=== PATIENT | female | born 1950 | race Caucasian/White ===

== ENCOUNTER 2021-06-08 18:18 | Inpatient (IN) | payer OTHER ==
[~2021-06-08] VITALS: Ht 157.5 cm; Wt 46.0 kg
[2021-06-08 23:01] LABS: Basophils # (auto) 0 10 ^3/uL (0-0.2); Basophils % (auto) 0.3 % (0.0-2.0); Eosinophils # (auto) 0.1 10 ^3/uL (0-0.8); Hematocrit 37.2 % (36.0-46.0); Lymphocytes # (auto) 1.2 10 ^3/uL (0.4-5.4); Mean Corpuscular Hemoglobin 30.9 pg (28.0-32.0); Mean Corpuscular Hgb Conc. 34.9 g/dL (32.0-36.0); Mean Corpuscular Volume 88.6 fL (80.0-100.0); Monocytes # (auto) 0.5 10 ^3/uL (0-1.3); Monocytes % (auto) 14.3 % (0.0-12.0); Neutrophils # (auto) 1.7 10 ^3/uL (1.6-8.6); Neutrophils % (auto) 48.4 % (37.0-80.0); Nucleated Red Blood Cells % 0.1 %; White Blood Cell 3.6 10^3/uL (4.4-10.8)
[2021-06-08 23:18] LABS: Calcium 8.2 mg/dL (8.5-10.1); Potassium 3.2 mmol/L (3.5-5.1)
[2021-06-08 23:40] LABS: BUN/Creatinine Ratio 19.6; Bilirubin, Total 0.5 mg/dL (0.2-1.0); Total Protein 6.1 g/dL (6.4-8.2)
[2021-06-09] MEDS ORDERED: AZITHROMYCIN 500MG/ 250ML 250 ML IV ONE (00:45)
[2021-06-09] MEDS ORDERED: cefTRIAXone SOD 1,000 MG VL IV ONE (00:45)
[2021-06-09] MEDS ORDERED: DexAMETHasone SOD PHOS 10MG/1ML VIAL INJ IV ONE (02:15)
[2021-06-09] MEDS ORDERED: ONDANSETRON HCL 4 MG/2 ML VIAL IV PRN (03:30)
[2021-06-09] MEDS ORDERED: POTASSIUM CHL 20 Meq TABLET PO ONE (03:30)
[2021-06-09] MEDS ORDERED: MORPHINE SULFATE INJECTION 2 MG/ML SYRG IV PRN (03:30)
[2021-06-09] MEDS ORDERED: ACETAMINOPHEN 500 MG TAB PO PRN (03:30)
[2021-06-09] MEDS ORDERED: NITROGLYCERIN 0.4 MG SL TAB SL PRN (03:30)
[2021-06-09] MEDS ORDERED: REMDESIVIR PER PHARMACY 0 ML IV SCH (03:30)
[2021-06-09 05:23] LABS: Magnesium 2.2 mg/dL (1.6-2.6)
[2021-06-09 05:31] LABS: CRP High Sensitivity 3.16 mg/dL (< 0.3)
[2021-06-09] MEDS: ASCORBIC ACID 1,000 MG TAB PO SCH (09:51)
[2021-06-09] MEDS: ZINC SULFATE 220mg CAP or TAB PO SCH (09:51)
[2021-06-09] MEDS: CHOLECALCIFEROL (VITD3) 2,000 UNIT CAP/TAB PO SCH (09:52)
[2021-06-09] MEDS: ENOXAPARIN SOD 40 MG/0.4 ML SYRINGE SC SCH ×2 (09:52→22:30)
[2021-06-09] MEDS: BUDESONIDE (INHALATION) 180 MCG IH IN SCH ×2 (10:00→18:41)
[2021-06-09] MEDS: IVERMECTIN 3 MG TAB PO SCH (12:06)
[2021-06-09] MEDS ORDERED: ACETAMINOPHEN 325 MG TAB PO ONE ×2 (13:05→13:15)
[2021-06-09] MEDS ORDERED: REMDESIVIR 200 MG in NS 210ml LOADING DOSE ADULT IV ONE (15:00)
[2021-06-09] MEDS: guaiFENesin-DM 100/10mg/5ml SYR PO PRN ×2 (16:05→21:37)
[2021-06-09] MEDS: ALBUTEROL SULF HFA 90MCG INH 200DOSE IN PRN (18:41)
[2021-06-09] MEDS: AZITHROMYCIN 500MG/ 250ML 250 ML IV SCH (22:00)
[2021-06-09] MEDS: cefTRIAXone 1GM/50ML D5W 50 ML IV SCH (22:30)
[2021-06-09] MEDS: DexAMETHasone SOD PHOS 10MG/1ML VIAL INJ IV SCH (22:30)
[2021-06-10] MEDS ORDERED: ATOR10TA52 PO (03:21)
[2021-06-10] MEDS ORDERED: FAMO-12 PO (03:21)
[2021-06-10] MEDS ORDERED: IPRIH IN (03:21)
[2021-06-10] MEDS ORDERED: ALBUAER3 IN (03:21)
[2021-06-10 07:40] LABS: Basophils # (auto) 0 10 ^3/uL (0-0.2); Basophils % (auto) 0.1 % (0.0-2.0); Eosinophils # (auto) 0 10 ^3/uL (0-0.8); Hematocrit 36.5 % (36.0-46.0); Hemoglobin 12.5 g/dL (12.2-16.2); Lymphocytes # (auto) 0.4 10 ^3/uL (0.4-5.4); Lymphocytes % (auto) 16.7 % (10.0-50.0); Mean Corpuscular Hemoglobin 30.5 pg (28.0-32.0); Mean Corpuscular Hgb Conc. 34.2 g/dL (32.0-36.0); Mean Corpuscular Volume 89.2 fL (80.0-100.0); Monocytes # (auto) 0.1 10 ^3/uL (0-1.3); Monocytes % (auto) 3.7 % (0.0-12.0); Neutrophils # (auto) 2.1 10 ^3/uL (1.6-8.6); Neutrophils % (auto) 79.5 % (37.0-80.0); Nucleated Red Blood Cells % 0.1 %; White Blood Cell 2.7 10^3/uL (4.4-10.8)
[2021-06-10 08:27] LABS: Albumin 2.9 g/dL (3.4-5.0); Calcium 8.1 mg/dL (8.5-10.1)
[2021-06-10 08:31] LABS: BUN/Creatinine Ratio 27.3; Bilirubin, Total 0.3 mg/dL (0.2-1.0)
[2021-06-10 09:00] VITALS: BP 101/59
[2021-06-10] MEDS: CHOLECALCIFEROL (VITD3) 2,000 UNIT CAP/TAB PO SCH (09:05)
[2021-06-10] MEDS: ZINC SULFATE 220mg CAP or TAB PO SCH (09:05)
[2021-06-10] MEDS: ENOXAPARIN SOD 40 MG/0.4 ML SYRINGE SC SCH ×2 (09:06→22:29)
[2021-06-10] MEDS: ASCORBIC ACID 1,000 MG TAB PO SCH (09:06)
[2021-06-10] MEDS: IVERMECTIN 3 MG TAB PO SCH (09:06)
[2021-06-10 10:08] LABS: Urine Bacteria NONE SEEN /hpf (None Seen); Urine Blood Negative /uL (Negative); Urine Specific Gravity 1.006 (1.001-1.035); Urine WBC <1 /hpf (0 - 5)
[2021-06-10 13:00] VITALS: BP_SYST 127; BP_SYST 144; BP_SYST 153; BP_SYST 97; BP_DIAS 53; BP_DIAS 62; BP_DIAS 63; BP_DIAS 76
[2021-06-10] MEDS: ALBUTEROL SULF HFA 90MCG INH 200DOSE IN PRN ×2 (13:20→18:51)
[2021-06-10] MEDS: REMDESIVIR 100mg 100 MG in SODIUM CHL 0.9% 230 ML IV SCH (15:40)
[2021-06-10 17:00] VITALS: BP 101/61
[2021-06-10 20:00] VITALS: BP 100/63
[2021-06-10] MEDS: BUDESONIDE (INHALATION) 180 MCG IH IN SCH (21:10)
[2021-06-10 22:00] VITALS: BP 100/63
[2021-06-10] MEDS: DexAMETHasone SOD PHOS 10MG/1ML VIAL INJ IV SCH (22:28)
[2021-06-10] MEDS: cefTRIAXone 1GM/50ML D5W 50 ML IV SCH (22:29)
[2021-06-10] MEDS: AZITHROMYCIN 500MG/ 250ML 250 ML IV SCH (23:18)
[2021-06-11 05:00] VITALS: BP 133/65
[2021-06-11] MEDS: ALBUTEROL SULF HFA 90MCG INH 200DOSE IN PRN ×2 (07:38→21:47)
[2021-06-11] MEDS: BUDESONIDE (INHALATION) 180 MCG IH IN SCH ×2 (07:38→21:47)
[2021-06-11 08:18] LABS: Albumin 2.8 g/dL (3.4-5.0); Calcium 7.9 mg/dL (8.5-10.1); Potassium 4.6 mmol/L (3.5-5.1)
[2021-06-11 08:22] LABS: BUN/Creatinine Ratio 34.1; Bilirubin, Total 0.2 mg/dL (0.2-1.0); Total Protein 5.4 g/dL (6.4-8.2)
[2021-06-11 09:00] VITALS: BP 101/54
[2021-06-11] MEDS: ENOXAPARIN SOD 40 MG/0.4 ML SYRINGE SC SCH ×2 (10:00→22:05)
[2021-06-11] MEDS: ZINC SULFATE 220mg CAP or TAB PO SCH (10:19)
[2021-06-11] MEDS: IVERMECTIN 3 MG TAB PO SCH (10:19)
[2021-06-11] MEDS: ASCORBIC ACID 1,000 MG TAB PO SCH (10:20)
[2021-06-11] MEDS: CHOLECALCIFEROL (VITD3) 2,000 UNIT CAP/TAB PO SCH (10:20)
[2021-06-11 13:00] VITALS: BP 89/54
[2021-06-11] MEDS: REMDESIVIR 100mg 100 MG in SODIUM CHL 0.9% 230 ML IV SCH (15:00)
[2021-06-11 16:46] VITALS: BP 117/74
[2021-06-11] MEDS: cefTRIAXone 1GM/50ML D5W 50 ML IV SCH (21:15)
[2021-06-11 22:00] VITALS: BP_SYST 93; BP_SYST 95; BP_DIAS 55; BP_DIAS 58
[2021-06-11] MEDS: DexAMETHasone SOD PHOS 10MG/1ML VIAL INJ IV SCH (22:05)
[2021-06-11] MEDS: AZITHROMYCIN 500MG/ 250ML 250 ML IV SCH (22:05)
[2021-06-12 05:00] VITALS: BP 95/61
[2021-06-12] MEDS: BUDESONIDE (INHALATION) 180 MCG IH IN SCH ×2 (05:53→22:12)
[2021-06-12] MEDS: ALBUTEROL SULF HFA 90MCG INH 200DOSE IN PRN (05:53)
[2021-06-12 08:34] LABS: Potassium 4.5 mmol/L (3.5-5.1)
[2021-06-12 08:45] LABS: BUN/Creatinine Ratio 26.4; Bilirubin, Total 0.3 mg/dL (0.2-1.0); Total Protein 5.5 g/dL (6.4-8.2)
[2021-06-12 09:00] VITALS: BP 112/69
[2021-06-12] MEDS: IVERMECTIN 3 MG TAB PO SCH (09:04)
[2021-06-12] MEDS: ZINC SULFATE 220mg CAP or TAB PO SCH (09:04)
[2021-06-12] MEDS: ASCORBIC ACID 1,000 MG TAB PO SCH (09:05)
[2021-06-12] MEDS: CHOLECALCIFEROL (VITD3) 2,000 UNIT CAP/TAB PO SCH (09:05)
[2021-06-12] MEDS: ENOXAPARIN SOD 40 MG/0.4 ML SYRINGE SC SCH ×2 (09:05→21:16)
[2021-06-12 13:00] VITALS: BP 103/63
[2021-06-12] MEDS: REMDESIVIR 100mg 100 MG in SODIUM CHL 0.9% 230 ML IV SCH (13:37)
[2021-06-12 17:00] VITALS: BP 115/55
[2021-06-12] MEDS ORDERED: AMLO-489 PO (17:09)
[2021-06-12] MEDS ORDERED: METF-370 PO (17:09)
[2021-06-12] MEDS: cefTRIAXone 1GM/50ML D5W 50 ML IV SCH (21:16)
[2021-06-12] MEDS: DexAMETHasone SOD PHOS 10MG/1ML VIAL INJ IV SCH (21:16)
[2021-06-12 22:00] VITALS: BP 103/63
[2021-06-12] MEDS: AZITHROMYCIN 500MG/ 250ML 250 ML IV SCH (22:20)
[2021-06-13] MEDS: ALBUTEROL SULF HFA 90MCG INH 200DOSE IN PRN ×2 (00:42→08:03)
[2021-06-13 05:00] VITALS: BP 111/62
[2021-06-13] MEDS: BUDESONIDE (INHALATION) 180 MCG IH IN SCH (08:03)
[2021-06-13 08:11] LABS: Basophils # (auto) 0 10 ^3/uL (0-0.2); Eosinophils # (auto) 0 10 ^3/uL (0-0.8); Hematocrit 36.8 % (36.0-46.0); Hemoglobin 12.5 g/dL (12.2-16.2); Lymphocytes # (auto) 0.6 10 ^3/uL (0.4-5.4); Lymphocytes % (auto) 16.4 % (10.0-50.0); Mean Corpuscular Hemoglobin 30.4 pg (28.0-32.0); Mean Corpuscular Volume 89.5 fL (80.0-100.0); Monocytes # (auto) 0.2 10 ^3/uL (0-1.3); Monocytes % (auto) 5.5 % (0.0-12.0); Neutrophils # (auto) 2.6 10 ^3/uL (1.6-8.6); Neutrophils % (auto) 78.1 % (37.0-80.0); Nucleated Red Blood Cells % 0.2 %; Red Blood Cells 4.11 10^6/uL (4.0-5.20); Red Cell Distribution Width 13.2 % (11.8-14.3); White Blood Cell 3.4 10^3/uL (4.4-10.8)
[2021-06-13 08:26] LABS: Potassium 4.5 mmol/L (3.5-5.1)
[2021-06-13 08:34] LABS: BUN/Creatinine Ratio 31.3; Bilirubin, Total 0.4 mg/dL (0.2-1.0); CRP High Sensitivity 0.54 mg/dL (< 0.3); Calcium 8.3 mg/dL (8.5-10.1); Total Protein 5.4 g/dL (6.4-8.2)
[2021-06-13 08:39] VITALS: BP 143/73
[2021-06-13] MEDS: ZINC SULFATE 220mg CAP or TAB PO SCH (09:20)
[2021-06-13] MEDS: IVERMECTIN 3 MG TAB PO SCH (09:20)
[2021-06-13] MEDS: ASCORBIC ACID 1,000 MG TAB PO SCH (09:20)
[2021-06-13] MEDS: CHOLECALCIFEROL (VITD3) 2,000 UNIT CAP/TAB PO SCH (09:21)
[2021-06-13] MEDS: ENOXAPARIN SOD 40 MG/0.4 ML SYRINGE SC SCH (09:21)
[2021-06-13 10:07] VITALS: BP 143/73
[2021-06-13] MEDS ORDERED: DEX4I PO (10:25)
[2021-06-13] MEDS: REMDESIVIR 100mg 100 MG in SODIUM CHL 0.9% 230 ML IV SCH (11:27)
[2021-06-13 12:35] VITALS: BP 111/62
== END 2021-06-13 16:37 | disposition home or self-care (01) | DRG 177 ==
LOC: EDBD 18:18 → ER 18:23 → TELE 06-09 03:22 → TELE-EAST 06-09 23:41
PROVIDERS: ADMIT Nurse Practitioner; ATTEND Internal Medicine
PROC: XW033E5 Introduction of Remdesivir Anti-infective into Peripheral Vein, Percutaneous Approach, New Technology Group 5 (ICD-10-PCS; principal; 2021-06-09)
DX: U07.1 COVID-19 (principal); J12.82 Pneumonia due to coronavirus disease 2019; J96.01 Acute respiratory failure with hypoxia; J44.1 Chronic obstructive pulmonary disease with (acute) exacerbation; J44.0 Chronic obstructive pulmonary disease with (acute) lower respiratory infection; Z68.1 Body mass index [BMI] 19.9 or less, adult; E87.6 Hypokalemia; R63.6 Underweight; Z23 Encounter for immunization; R73.9 Hyperglycemia, unspecified
CPT/HCPCS: 36415; 36600; 71045; 80053; 81001; 82728; 82805; 83036; 83605; 83615; 83735; 83880; 84484; 85025; 85379; 86141; 87426; 93005; 94640; 96365; 96375; G0378; J0696; J1100; J2405